=== PATIENT | female | born 1970 | race Caucasian/White ===

== ENCOUNTER 2022-11-08 09:40 | Emergency (ER) | payer OTHER, SELFPAY ==
[2022-11-08 09:49] VITALS: PULSE 84; RESP 18; TEMP 36.9; O2SAT 98; BMI 30.3
[2022-11-08 09:54] VITALS: BP 123/78; PULSE 76; PULSE 88; RESP 16; RESP 19
--- NOTE | 2022-11-08 10:08 | ED.GENADUL1 ---
HPI - General Adult General Chief complaint: Neuro Symptoms/Deficit Stated complaint: NUMBNESS IN FACE, LIPS/DIZZINESS Time Seen by Provider: 11/08/22 09:55 Source: patient Mode of arrival: walk-in History of Present Illness HPI narrative: this patient drove herself here from her place of employment. 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 She states while sitting down talking to the patient she started developing dizziness and tingling of her facial area. She specifically denied any other localizing or focal neurological symptoms such as diplopia or dysarthria or dysphasia. She had no loss of motor function of her upper or lower limbs. There is no tingling or loss of sensation of her trunk or extremities. She did not have any difficulty swallowing or speaking. She did not have headache. She did not have any neck pain. She's not experienced this previously. It was relatively short-lived but she felt pretty badgering the episode. She is on a number of medications that were updated on the nursing record. She has not had previous lacunar syndromes or transient ischemic attacks previously. She's not known to have a cardiovascular disease. She did not have palpitations or near syncopal episode. She did not describe any vertigo or spinning sensation. She did have some aching in her ears last night a thumping sound but no other ENT symptomatology. She's not on any new medications. She tested herself for Covid and it was negative but she doesn't really have any cold symptoms recently. Related Data Home Medications Medication Instructions Recorded Confirmed carisoprodol 350 mg tablet 350 mg PO .QHS PRN muscle pain 11/08/22 11/08/22 duloxetine 60 mg capsule,delayed 60 mg PO QDAY 11/08/22 11/08/22 release fluoxetine 10 mg capsule 10 mg PO QDAY 11/08/22 11/08/22 gabapentin 100 mg capsule 400 mg PO .QHS PRN NERVE PAIN 11/08/22 11/08/22 hydrocodone 5 mg-acetaminophen 325 0.5 tab PO QDAY PRN pain 11/08/22 11/08/22 mg tablet lisinopril 10 1 tab PO QDAY 11/08/22 11/08/22 mg-hydrochlorothiazide 12.5 mg tablet metformin 500 mg tablet 500 mg PO BID 11/08/22 11/08/22 naratriptan 2.5 mg tablet 2.5 mg PO Q4H PRN migraine headache 11/08/22 11/08/22 prednisone 10 mg tablet 10 mg PO QDAY 11/08/22 11/08/22 simvastatin 20 mg tablet 20 mg PO DAILY 11/08/22 11/08/22 Allergies Allergy/AdvReac Type Severity Reaction Status Date / Time acetaminophen [From Percocet] AdvReac Intermediate Verified 11/08/22 09:55 oxycodone [From Percocet] AdvReac Intermediate Verified 11/08/22 09:55 Sulfa (Sulfonamide AdvReac Intermediate Verified 11/08/22 09:55 Antibiotics) DEMEROL AdvReac Intermediate Uncoded 11/08/22 09:55 TRAMADOL AdvReac Intermediate Uncoded 11/08/22 09:55 Exam Narrative Exam Narrative: GENERAL: Well hydrated, appears well, No obvious distress, Awake, Alert, Oriented x 3, Cognition intact HEENT: Normocephalic, No evidence of trauma, injury or infection, airway intact. Conjuntiva normal, no pallor or scleral icterus NECK: Supple, no meningeal irritation, full ROM, non-tender, No JVD CHEST: Symmetrical, no injury, non-tender, RESP: LCTA, no wheeze, rales, rhonchi,no subcutaneous emphysema, no labored respirations CARDIO: Normal rate and rhythm, No murmur, Rub, or ectopy during auscultation. ABD: Non-tender, normal BS, no guarding, rebound or rigidity. No pulsatile, masses. No organomegaly NEURO: Neuro at baseline, No motor deficits, CN 2-12 Normal, Mentation inctact. EXTREMITIES: No edema, good tissue perfusion, no venous cords, non-tender SKIN: No petechiae, purpura, or abnormal bruising, warm, dry, no rash patient's cranial nerves were carefully tested and are normal. Finger to nose is normal. Fine motor skills normal. Motor examination the trunk torso and extremities is normal. The eye examination did not show any disconjugate gaze or nystagmus. There is no carotid bruits. Constitutional Vital Signs, click to edit/add: Last Vital Signs Temp 98.4 F 11/08/22 09:49 Pulse 84 11/08/22 09:49 Resp 18 11/08/22 09:49 Pulse Ox 98 11/08/22 09:49 O2 Del Method Room Air 11/08/22 09:49 Course Vital Signs Vital signs: Vital Signs Temperature 98.4 F 11/08/22 09:49 Pulse Rate 84 11/08/22 09:49 Respiratory Rate 18 11/08/22 09:49 Pulse Oximetry 98 11/08/22 09:49 Oxygen Delivery Method Room Air 11/08/22 09:49 Temperature 98.4 F 11/08/22 09:49 Pulse Rate 84 11/08/22 09:49 Respiratory Rate 18 11/08/22 09:49 Pulse Oximetry 98 11/08/22 09:49 Oxygen Delivery Method Room Air 11/08/22 09:49 Medical Decision Making MDM Narrative Medical decision making narrative: although the patient's potassium is low I do not believe that this is necessarily causing her symptoms. She is on a number of medications that all can have paresthesias as symptomatology. Her CT scan is negative. She does not have a high risk factors for stroke syndrome at this time. I believe the most likely diagnosis is medication effect compounded by low potassium. Already speak with her about following up with neurology even though she does not have any other symptoms suggestive of multiple sclerosis she understands the status in the differential diagnosis Lab Data Labs: Lab Results 11/08/22 Range/Units 10:17 WBC 14.3 H (4.0-11.0) 10^3/uL RBC 4.41 (4.20-5.40) 10^6/uL Hgb 13.7 (12.0-16.0) g/dL Hct 40.7 (36.0-48.0) % MCV 92.3 (81.0-99.0) fL MCH 31.1 (26.7-34.0) pg MCHC 33.7 (29.9-35.2) g/dL RDW 13.4 (11.0-15.0) % Plt Count 375 (150-450) 10^3/uL MPV 9.1 L (9.5-13.5) fL Neut % (Auto) 82.2 H (43.0-75.0) % Lymph % (Auto) 13.2 L (20.5-60.0) % [place] % (Auto) 3.6 (1.7-12.0) % Eos % (Auto) 0.3 L (0.9-7.0) % Baso % (Auto) 0.3 (0.2-2.0) % Neut # (Auto) 11.7 H (1.4-6.5) 10^3/uL Lymph # (Auto) 1.9 (1.2-3.8) 10^3/uL [place] # (Auto) 0.5 (0.3-0.8) 10^3/uL Eos # (Auto) 0.0 (0.0-0.7) 10^3/uL Baso # (Auto) 0.0 (0.0-0.1) 10^3/uL Abs Immat Gran (auto) 0.06 H (0.00-0.03) 10^3/uL Imm/Tot Granulo (auto) 0.4 (0.0-0.5) % Sodium 139 (136-145) mmol/L Potassium 3.2 L (3.5-5.1) mmol/L Chloride 100 (98-107) mmol/L Carbon Dioxide 29.2 (21.0-32.0) mmol/L Anion Gap 13.0 BUN 10.0 (7.0-18.0) mg/dL Creatinine 0.59 (0.55-1.02) mg/dL Est GFR ( Amer) >60 (>=60) Est GFR (Non-Af Amer) >60 (>=60) BUN/Creatinine Ratio 16.9 Glucose 110 H (74-106) mg/dL Calcium 8.8 (8.5-10.1) mg/dL Total Bilirubin 0.3 (0.2-1.0) mg/dL AST 16 (15-37) U/L ALT 32 (14-59) U/L Alkaline Phosphatase 46 (46-116) U/L Total Protein 7.0 (6.4-8.2) g/dL Albumin 3.6 (3.4-5.0) g/dL Globulin 3.4 g/dL Albumin/Globulin Ratio 1.1 Discharge Plan Discharge Chief Complaint: Neuro Symptoms/Deficit Clinical Impression: Acute hypokalemia Patient Disposition: Home, Self-Care Time of Disposition Decision: 10:59 Prescriptions / Home Meds: No Action duloxetine 60 mg capsule,delayed release(DR/EC) 60 mg PO QDAY fluoxetine 10 mg capsule 10 mg PO QDAY lisinopril-hydrochlorothiazide 10-12.5 mg tablet 1 tab PO QDAY prednisone 10 mg tablet 10 mg PO QDAY Hold Instructions: DC carisoprodol 350 mg tablet 350 mg PO .QHS PRN (Reason: muscle pain) gabapentin 100 mg capsule 400 mg PO .QHS PRN (Reason: NERVE PAIN) hydrocodone-acetaminophen 5-325 mg tablet 0.5 tab PO QDAY PRN (Reason: pain) naratriptan 2.5 mg tablet 2.5 mg PO Q4H PRN (Reason: migraine headache) metformin 500 mg tablet 500 mg PO BID simvastatin 20 mg tablet 20 mg PO DAILY Stand Alone Forms: Portal Instructions Referrals: TRUNG THEODORE [Primary Care Provider] - 1 week
--- NOTE | 2022-11-08 10:10 | ECG_ITS ---
[facility] Test Date: 2022-11-08 Pat Name: TISHA GARCIA Department: Room: - Gender: Female [employer]: : 1970 Requested By: [id number] Order Number: [id number] Reading MD: GIANA HONG Measurements Intervals [place] Rate: 82 P: 47 AK: 120 QRS: 85 QRSD: 78 T: 38 QT: 366 QTc: 405 Interpretive Statements 1100 Sinus rhythm 9110 normal ECG No previous ECG available for comparison Electronically Signed On 11-09-2022 6:32:12 EDT by GIANA HONG
--- NOTE | 2022-11-08 10:10 | CT_ITS ---
The [address] [address] Patient Name: TISHA GARCIA MRN: [id number] date: 1970 Sex: F Assigned Patient Location: ER Current Patient Location: ER Accession/Order Number: [id number] Exam Date: 11/08/2022 10:14 Report Date: 11/08/2022 10:35 At the request of: KITTY SHIELDS Procedure: CT stroke head/brain wo con EXAMINATION: CT stroke head/brain wo con HISTORY: facial paresthesia COMPARISON: No relevant comparison available. TECHNIQUE: Axial CT images were obtained without IV contrast. Dose reduction techniques were achieved by using automated exposure control and/or adjustment of mA and/or kV according to patient size and/or use of iterative reconstruction technique. FINDINGS: BRAIN: No edema, hemorrhage, mass, acute infarction, or inappropriate atrophy. CSF SPACES: No hydrocephalus, subarachnoid hemorrhage, or mass. Appropriate for age. SKULL: No fracture, mass, or other significant visible lesion. SINUSES: No significant mucosal thickening or fluid on the limited views. ORBITS: No appreciable abnormality on the limited views. OTHER: Negative CT/CT stroke head/brain wo con IMPRESSION: 1. No intracranial hemorrhage, CT evidence of ischemia, or suspicious findings. Findings discussed via telephone with Mark in the emergency department to be relayed to Dr. Shields. Electronically authenticated by: ANDRES RASMUSSEN Date: 11/08/2022 10:35
[2022-11-08 10:21] LABS: Basophils Percent Auto 0.3 % (0.2-2.0); Eosinophils Percent Auto 0.3 % (0.9-7.0); Hematocrit 40.7 % (36.0-48.0); Hemoglobin 13.7 g/dL (12.0-16.0); Immature Granulocytes Abs Auto 0.06 10^3/uL (0.00-0.03); Immature Granulocytes Pct Auto 0.4 % (0.0-0.5); Lymphocytes Absolute Auto 1.9 10^3/uL (1.2-3.8); Lymphocytes Percent Auto 13.2 % (20.5-60.0); Mean Corpuscular HGB Conc 33.7 g/dL (29.9-35.2); Mean Corpuscular Hemoglobin 31.1 pg (26.7-34.0); Mean Corpuscular Volume 92.3 fL (81.0-99.0); Mean Platelet Volume 9.1 fL (9.5-13.5); Monocytes Absolute Auto 0.5 10^3/uL (0.3-0.8); Monocytes Percent Auto 3.6 % (1.7-12.0); Neutrophils Absolute Auto 11.7 10^3/uL (1.4-6.5); Neutrophils Percent Auto 82.2 % (43.0-75.0); Platelet Count 375 10^3/uL (150-450); Red Blood Count 4.41 10^6/uL (4.20-5.40); Red Cell Distribution Width 13.4 % (11.0-15.0); White Blood Count 14.3 10^3/uL (4.0-11.0)
[2022-11-08 10:36] LABS: Alanine Aminotransferase 32 U/L (14-59); Albumin Globulin Ratio 1.1; Albumin Level 3.6 g/dL (3.4-5.0); Alkaline Phosphatase 46 U/L (46-116); Aspartate Amino Transferase 16 U/L (15-37); BUN Creatinine Ratio 16.9; Bilirubin Total 0.3 mg/dL (0.2-1.0); Calcium 8.8 mg/dL (8.5-10.1); Carbon Dioxide 29.2 mmol/L (21.0-32.0); Chloride 100 mmol/L (98-107); Estimated GFR (African America >60 (>=60); Estimated GFR (Non-African Ame >60 (>=60); Globulin 3.4 g/dL; Glucose 110 mg/dL (74-106); Potassium 3.2 mmol/L (3.5-5.1); Sodium 139 mmol/L (136-145)
[2022-11-08] MEDS: POTASSIUM CHLORIDE 10 MEQ ER TABLET 20 MEQ PO (11:10)
== END 2022-11-08 11:14 | disposition home or self-care (01) ==
PROVIDERS: Emergency Provider Emergency Medicine Emergency Medical Services; PCP Family Medicine
DX: E87.6 Hypokalemia (principal); Z79.899 Other long term (current) drug therapy; Z79.84 Long term (current) use of oral hypoglycemic drugs
CPT/HCPCS: 36415; 70450; 80053; 85025; 93005; 99285